=== PATIENT | male | born 1975 | race Caucasian/White ===

== ENCOUNTER 2016-07-27 00:30 | Emergency (ER) | payer OTHER ==
[2016-07-27 01:39] LABS: BASOPHIL 0.2 % (0-2); EOSINOPHIL 0.8 % (0-5); HCT 39.7 % (42.0-52.0); HGB 13.8 g/dl (13.2-18.0); LYMPHOCYTE 41.4 % (15-48); MCH 31.7 pg (25.0-31.0); MCHC 34.8 g/dL (32.0-36.0); MCV 91.3 fL (78.0-100.0); MONOCYTE 6.5 % (0-12); MPV 8.2 fL (6.0-9.5); NEUTROPHIL 51.1 % (41-80); PLT 264 K/uL (150-400); RBC 4.35 M/uL (4.70-6.00); WBC 6.6 K/uL (4.0-10.5)
[2016-07-27 01:56] LABS: CREATININE 0.8 mg/dL (0.7-1.2); POTASSIUM 3.5 mmol/L (3.5-5.1)
== END 2016-07-27 03:06 | disposition home or self-care (01) ==
LOC: FER 00:30
PROVIDERS: Internal Medicine
DX: G89.18 Other acute postprocedural pain (principal); F17.210 Nicotine dependence, cigarettes, uncomplicated; Z98.890 Other specified postprocedural states
CPT/HCPCS: 36415; 80048; 85025; 99284